=== PATIENT | female | born 1950 | race American Indian/Alaskan Native ===

== ENCOUNTER 2020-11-03 15:45 | Emergency (ER) | payer MEDICARE ==
--- NOTE | 2020-11-03 16:04 | Event Note ---
ED Screening Note ED Screening Note: CO N/V FLATUS NO DIARRHEA HR 95 HX GERD; HTN THINKS SHE ATE SOMETHING BAD CO EPIGASTRIC PAIN; NO CP NO SOB POS CHILLS NO FEVER NO COUGH This initial assessment/diagnostic orders/clinical plan/treatment(s) is/are subject to change based on patients health status, clinical progression and re-assessment by fellow clinical providers in the ED. Further treatment and workup at subsequent clinical providers discretion. Patient/guardian urged not to elope from the ED as their condition may be serious if not clinically assessed and managed. Initial orders include: LABS/UA RO ATYPICAL ACS GIVEN AGE
[2020-11-03 17:07] LABS: Hematocrit 44.6 % (30.3-42.9); Hemoglobin 15.1 gm/dl (10.1-14.3); Mean Corpuscular HGB Conc 34 % (30-34); Mean Corpuscular Volume 94 fl (79-97); Platelet Count 217 K/mm3 (140-440); Red Blood Count 4.76 M/mm3 (3.65-5.03); Red Cell Distribution Width 13.7 % (13.2-15.2)
[2020-11-03 17:16] LABS: Alanine Aminotransferase 12 units/L (7-56); Albumin 4.3 g/dL (3.9-5); Blood Urea Nitrogen 8 mg/dL (7-17); Calcium 9.9 mg/dL (8.4-10.2); Hemolysis Index 2
[2020-11-03 17:22] LABS: BUN/Creatinine Ratio 13
[2020-11-03] MEDS ORDERED: SODIUM CHLORIDE 0.9% 1000 ML 1,000 ML IV ONE (18:49)
[2020-11-03] MEDS ORDERED: LIDOCAINE VISCOUS 2% 15 ML ORAL LIQD PO ONE (18:49)
[2020-11-03] MEDS ORDERED: ALUM-MAG HYDROXIDE-SIMETHICONE 200-200-20MG/5ML ORAL LIQD 30 ML PO ONE (18:49)
[2020-11-03] MEDS ORDERED: KETOROLAC 30 MG/1 ML INJ IV ONE (18:49)
--- NOTE | 2020-11-03 19:38 | Emergency Department Report ---
HPI - General Chief Complaint: Abdominal Pain Time Seen by Provider: 11/03/20 16:01 - [facility] HPI: Room 34 The patient is a 70-year-old female present with a chief complaint of abdominal pain. The patient states she suffers from intermittent epigastric abdominal pain for the past month. The patient states this morning she awakened with the same pain but had not resolved. Patient admits to multiple episodes of nausea vomiting and increased eructation. Patient states she passed flatus earlier in the day but none recently. Patient states her last bowel movement occurred yesterday and was within normal limits. Patient denies history of fever and c urrently gives her abdominal pain a score of 6/10 ED Past Medical Hx - Past Medical History Previous Medical History?: Yes Hx Hypertension: Yes Additional medical history: gastritis - Surgical History Hx Cholecystectomy: Yes Additional Surgical History: HYSTERECTOMY, wound dehiscence - Family History Family history: no significant - Social History Smoking Status: Never Smoker Substance Use Type: None (Denies illicit drug use) ED Review of Systems ROS: Stated complaint: STOMACH PAIN;GASSY; NAUSEA Other details as noted in HPI Constitutional: denies: fever Eyes: denies: eye pain ENT: denies: throat pain Respiratory: no symptoms reported Cardiovascular: denies: chest pain Endocrine: no symptoms reported Gastrointestinal: abdominal pain, nausea, vomiting. denies: diarrhea Genitourinary: denies: dysuria Musculoskeletal: denies: back pain Neurological: denies: headache Physical Exam - Physical Exam Vital Signs: Vital Signs 11/03/20 11/03/20 15:59 18:12 Temperature 98.3 F 98.1 F Pulse Rate 95 H 89 Respiratory 18 18 Rate Blood Pressure 173/81 Blood Pressure 178/89 [Right] O2 Sat by Pulse 100 100 Oximetry Physical Exam: GENERAL: The patient is well-developed well-nourished female lying on stretcher not appearing to be in acute distress. [] HEENT: Normocephalic. Atraumatic. Extraocular motions are intact. Patient has moist mucous membranes. NECK: Supple. Trachea midline CHEST/LUNGS: Clear to auscultation. There is no respiratory distress noted. HEART/CARDIOVASCULAR: Regular. There is no tachycardia. There is no gallop rub or murmur. ABDOMEN: Abdomen is soft, with discomfort to palpation in the left upper quadrant, right upper quadrant and midepigastric region. Patient is most tender in the midepigastric region. There is no rebound or guarding. Patient has normal bowel sounds. There is no abdominal distention. SKIN: There is no rash. There is no edema. There is no diaphoresis. NEURO: The patient is awake, alert, and oriented. The patient is cooperative. The patient has no focal neurologic deficits. The patient has normal speech MUSCULOSKELETAL: There is no evidence of acute injury. ED Course Vital Signs 11/03/20 11/03/20 15:59 18:12 Temperature 98.3 F 98.1 F Pulse Rate 95 H 89 Respiratory 18 18 Rate Blood Pressure 173/81 Blood Pressure 178/89 [Right] O2 Sat by Pulse 100 100 Oximetry - Reevaluation(s) Reevaluation #1: 11/03/20 22:[address] abdomen pelvis. Patient states she feels improved. - EJ/Peripheral Line Neck L Time Out Performed: Yes Indications: nurses unable to establis Skin Cleansed in Sterile Fashion: Yes Size: 20 Dressing Placed: Tegaderm Patient Tolerated Procedure: well, no complications ED Medical Decision Making - Lab Data Result diagrams: 11/03/20 16:36 11/03/20 16:36 - EKG Data -: EKG Interpreted by Me EKG shows normal: sinus rhythm Rate: normal - EKG Data When compared to previous EKG there are: previous EKG unavailable Interpretation: nonspecific ST-T wave yaima (T wave inversion lead III) - Differential Diagnosis Gastritis, peptic ulcer disease, pancreatitis, SBO Critical care attestation.: If time is entered above; I have spent that time in minutes in the direct care of this critically ill patient, excluding procedure time. ED Disposition Clinical Impression: Acute abdominal pain Disposition: DC-07 LEFT AGAINST MED ADVICE Is pt being admited?: No Does the pt Need Aspirin: No Condition: Undetermined Instructions: Abdominal Pain (ED) Referrals: PRIMARY CARE, [Primary Care Provider] - 3-5 Days Forms: AMA Form Time of Disposition: 22:18 (Patient refused CT abdomen pelvis)
[2020-11-03 19:56] LABS: Bilirubin,Urine NEG (Negative); Blood,Urine NEG (Negative); Color,Urine Yellow (Yellow); Mucus,Urine FEW /HPF; Protein,Urine <15 mg/dL mg/dL (Negative); Urobilinogen,Urine < 2.0 mg/dL (<2.0)
[2020-11-03] MEDS ORDERED: ONDANSETRON 4 MG/2 ML INJ IM ONE (19:58)
[2020-11-03] MEDS ORDERED: ONDANSETRON 4 MG/2 ML INJ ONE (19:58)
[2020-11-03 22:29] VITALS: BP 152/62
[2020-11-03 22:56] LABS: Total Cells Counted 100
[2020-11-03 22:57] LABS: Large Platelets Rare
[2020-11-03 22:58] LABS: Platelet Estimate Consistent w Auto; RBC Morphology Normal
== END 2020-11-03 22:30 | disposition left against medical advice (07) ==
LOC: ED 15:45
DX: R10.13 Epigastric pain (principal); I10 Essential (primary) hypertension; Z88.0 Allergy status to penicillin; Z88.8 Allergy status to other drugs, medicaments and biological substances; Z90.49 Acquired absence of other specified parts of digestive tract; Z79.899 Other long term (current) drug therapy; Z90.710 Acquired absence of both cervix and uterus; Z88.6 Allergy status to analgesic agent
CPT/HCPCS: 36415; 36569; 80053; 81001; 83690; 84484; 85007; 85025; 93005; 96361; 96372; 96374; 99284; J1885; J2405; J7030